=== PATIENT | male | born 1955 | race Two or more races ===

== ENCOUNTER → 2024-04-15 08:17 | Outpatient (REF) | payer OTHER, SELFPAY | LOC: RAD 08:17 | PROVIDERS: ATTENDING PHYSICIAN Internal Medicine Cardiovascular Disease; FAMILY PHYSICIAN Family Medicine | DX: R94.39 Abnormal result of other cardiovascular function study (principal) | CPT/HCPCS: 75574; Q9967 ==

== ENCOUNTER 2024-05-07 05:59 | Day surgery (SDC) | payer OTHER, SELFPAY ==
--- NOTE | 2024-05-06 16:57 | ITS.CL.CATH ---
Counter Hop - Catheterization
Cardiac Catheterization
Procedure Report:
LEFT HEART CATHETERIZATION
Date of Procedure: May 07, 2024
Referring: Heron Nickerson MD
PROCEDURES:
1. Left catheterization, coronary angiogram.
2. Ultrasound-guided access.
3. Physiologic functional testing with IFR of mid LAD.
INDICATION: Patient is a 68-year-old gentleman with past medical history of hypertension, hyperlipidemia, insulin-dependent type 2 diabetes, former smoker, baseline intraventricular conduction delay with significantly elevated coronary calcium score
at 3500, strong family history of premature coronary artery disease with ongoing dyspnea on exertion and fatigue triggered by activity like yard work who is now being referred for a left heart catheterization to rule out obstructive CAD. Denies any
chest discomfort. Transthoracic echocardiogram from 12/04/23 showed normal biventricular function without significant valvular pathology. Pharmacologic nuclear stress test from 11/21/23 revealed no perfusion defects but transient ischemic dilatation
was noted with a ratio 1.3. Coronary CT angiogram from March 2024 showed an LVEF of 73%, significant multivessel coronary artery disease with significant calcified plaque in the distal left main into the LAD, left circumflex and RCA with total
calcium score of 3488.46.
ACCESS: Right radial artery, 6 Sami sheath, under ultrasound-guided
HEMODYNAMICS : (mmHg)
AO (s/d) : 116/60
LV (s/d) : 109/11
LVEDP : 16
CORONARY FINDINGS: Heavily calcified coronary arteries
DOMINANCE: Right
LEFT MAIN: The left main artery is a large-caliber vessel which gives rise to the left anterior descending artery and the left circumflex artery. There is mild distal tapering.
LEFT ANTERIOR DESCENDING: The left anterior descending artery has diffuse up to 50 to 60% stenosis in the midportion which is IFR positive at 0.89. Distal apical LAD has tubular 70% stenosis
CIRCUMFLEX: The left circumflex artery is a medium caliber vessel which gives rise to 2 major obtuse marginal branches. Ostial left circumflex artery is heavily calcified with eccentric 70% stenosis. There are 2 serial lesions in the mid left
circumflex artery that are 80 to 90%. OM 2 has ostial to proximal 70 to 80% stenosis.
RIGHT CORONARY ARTERY: The right coronary artery is a large-caliber, dominant vessel which gives rise to the right posterior descending artery on the right posterolateral system as well as the right atrial branch. There is a 80% stenosis in the
proximal RCA. There appears to be a dual PDA system. The lower PDA has diffuse up to 60% stenosis from the ostium to the proximal portion.
HEMODYNAMIC ASSESSMENT OF THE MID LAD WITH A VOLCANO OMNI WIRE: The origin of the left coronary was cannulated with a 6 Fr JL 3.5 guide catheter. Intravenous heparin was administered and the ACT was followed during the procedure. Two hundred
micrograms of intracoronary nitroglycerin was given through the guide catheter. A [place] Omni wire was advanced to the guide catheter tip and normalized in the ostial left main. The Omni wire was then carefully manipulated across the stenosis in
the mid LAD with the iFR below the ischemic threshold serially measuring 0.89, 0.89, 0.89. The Omni wire was then pulled back to the guide catheter where the Pd/Pa measured 1.0 confirming no baseline drift in pressure readings.
SEDATION: 56 minutes of procedural sedation was utilized. An independent medical affairs specialist was present to assist with and help manage the patient's level of consciousness and physiologic status.
RADIATION SUMMARY: Fluoro Time (min): 13.2, Dose (mGy): 654.77, DAP (Gy.cm2) : 44.9
Closure Device: Vascular band over right radial artery, 10 cc of air
CONCLUSIONS
1. Multivessel coronary artery disease and heavily calcified coronary arteries.
2. Mildly elevated LVEDP
RECOMMENDATIONS
1. In the setting of known type 2 diabetes mellitus and multivessel coronary artery disease, will refer to CT surgery for consideration of coronary artery bypass grafting to LAD, OM1/2, RCA
2. Aggressive management of cardiovascular risk factors.
3. Optimization of goal-directed medical therapy for underlying coronary artery disease.
4. Eventual referral for outpatient cardiac rehab
Copy to: Heron Nickerson MD
Maren Matias MD, FACC, [facility]
[2024-05-07] VITALS (7 sets, daily range): BP systolic 126–173; BP diastolic 65–73; BMI 26.6
[2024-05-07] MEDS: NSS 215 ML IV (06:45)
[2024-05-07] MEDS: LOW STRENGTH ASPIRIN 324 MG PO (06:46)
[2024-05-07 06:49] LABS: Hematocrit 36.5 % (39.0-52.0); Hemoglobin 11.8 g/dL (13.0-18.0); Mean Corp Hgb Conc. 32.3 g/dL (33.0-37.0); Mean Corpuscular Hgb 24.8 pg (27.0-31.0); Mean Corpuscular Volume 76.8 fL (80.0-94.0); Mean Platelet Volume 8.5 fL (7.4-10.4); Platelet Count 229 10^3/uL (130-400); Red Blood Cell Count 4.75 10^6/uL (4.70-6.10); Red Cell Dist. Width 14.6 % (11.5-14.5)
[2024-05-07 07:16] LABS: Glucose - Point of Care 192 mg/dl (70-99)
[2024-05-07 07:19] LABS: ALT (SGPT) 39 U/L (0-50); AST (SGOT) 32 U/L (17-59); Albumin 4.1 g/dl (3.5-5.0); Alkaline Phosphatase 100 U/L (38-126); Blood Urea Nitrogen 21 mg/dl (9-20); Calcium 9.1 mg/dl (8.4-10.2); Carbon Dioxide 28 mmol/L (22-30); Chloride 104 mmol/L (98-107); Estimated Creatinine Clearance 84 ml/min; Glucose 175 mg/dl (70-99); Potassium 3.9 mmol/L (3.5-5.1); Sodium 139 mmol/L (135-145); Total Bilirubin 0.4 mg/dl (0.2-1.3); Total Protein 7.4 g/dl (6.3-8.2); eGFR > 60.00
[2024-05-07 07:49] LABS: ACT-LR - POC 248 Seconds (116-155)
[2024-05-07 08:10] LABS: ACT-LR - POC 239 Seconds (116-155)
[2024-05-07] MEDS: LASIX 20 MG IV (08:56)
== END 2024-05-07 11:19 | disposition home or self-care (01) ==
LOC: CATH 05:59
PROVIDERS: ATTENDING PHYSICIAN Internal Medicine Interventional Cardiology; CONSULT PHYSICIAN Thoracic Surgery (Cardiothoracic Vascular Surgery); FAMILY PHYSICIAN Family Medicine; OTHER PHYSICIAN Internal Medicine Cardiovascular Disease
DX: I25.10 Atherosclerotic heart disease of native coronary artery without angina pectoris (principal); R06.09 Other forms of dyspnea; R94.39 Abnormal result of other cardiovascular function study; I12.9 Hypertensive chronic kidney disease with stage 1 through stage 4 chronic kidney disease, or unspecified chronic kidney disease; E11.22 Type 2 diabetes mellitus with diabetic chronic kidney disease; N18.1 Chronic kidney disease, stage 1; E78.5 Hyperlipidemia, unspecified; Z87.891 Personal history of nicotine dependence; Z82.49 Family history of ischemic heart disease and other diseases of the circulatory system; Z79.4 Long term (current) use of insulin; Z79.82 Long term (current) use of aspirin; Z79.84 Long term (current) use of oral hypoglycemic drugs; Z79.85 Long-term (current) use of injectable non-insulin antidiabetic drugs
CPT/HCPCS: 99152; 99153; C1894; C1769; 80053; 82962; 85027; 85347; 93458; 93571

== ENCOUNTER 2024-05-10 17:20 | Inpatient (IN) | payer OTHER, SELFPAY ==
[2024-05-10] VITALS (14 sets, daily range): BP systolic 100–154; BP diastolic 52–91; BMI 26.0; BMI 25.0
[2024-05-10 11:55] LABS: Glucose - Point of Care 195 mg/dl (70-99)
[2024-05-10] MEDS: NSS 1000 IV (12:14)
[2024-05-10] MEDS: ZOFRAN 4 MG IV (12:20)
--- NOTE | 2024-05-10 12:23 | ED.GENMED ---
History of Present Illness
<Tre Smith PA-C - Last Filed: 05/10/24 16:23>
General
Chief Complaint: Chest Pain
Source: patient
Exam Limitations: none
Time Seen by Provider: 05/10/24 12:04
Travel History
Have you had any contact with someone who has COVID-19?: No
Do you have any symptoms of coronavirus? Fever > 100 degrees, chills, cough, shortness of breath, sore throat, loss of taste or smell, muscle aches, or headache?: No
History of Present Illness
History of Present Illness:
68-year-old male presents with nausea weakness lightheadedness fatigue and vomiting onset today. 3 days ago he underwent cardiac catheterization for significant family history of cardiac disease, multiple medical comorbidities including type 2
diabetes hypertension hyperlipidemia and former smoker. He was found to have multivessel disease and was referred to CT surgery. He states he was told to take carvedilol 3.125 mg twice a day and increase his statin. He notes a slight amount of
chest pain but notes more nausea than anything. Denies syncope. No other complaints at this time
Phy Exam
<Tre Smith PA-C - Last Filed: 05/10/24 16:23>
Physical Exam
Physical Exam:
General: Unwell appearing male no respiratory distress
HEENT: Normocephalic atraumatic mucosa dry
Heart: Bradycardic but regular
Lungs: Clear no wheeze
Abdomen soft nontender nondistended no guarding rebound normal bowel sound
Extremities: No cyanosis or edema
Scores
<Tre Smith PA-C - Last Filed: 05/10/24 16:23>
Heart Score for Chest Pain Patients
STEMI patient?: No
History: Slightly or Non-Suspicious
ECG: Normal
Age: >/= 65 years
Risk Factors: >/= 3 Risk Factors or History of CAD
Troponin: </= Normal Limit
Heart Score for Chest Pain Patients: 4
Heart Score Risk: 20.3% MACE over next 6 weeks
Course
Catlt;Tre Smith PA-C - Last Filed: 05/10/24 16:23>
Orders/Labs/Results
Orders:
Orders
05/10/24 11:58
ECG [Electrocardiogram (*1)] Urgent
Reason for Study: Chest Pain
EKG- Treatment ONCE
05/10/24 12:14
0.9% Sodium Chloride 1000 ml [Nss] 1,000 ml IV BOLUS
05/10/24 12:15
Complete Blood Count/With Diff Urgent
Comprehensive Metabolic Panel Urgent
Creatine Phosphokinase Urgent
Lipase Urgent
Troponin I Urgent
0.9% Sodium Chloride 1000 ml [Nss] 1,000 ml IV 2,000 mls/hr
05/10/24 12:18
Ondansetron Injectable [Zofran] 4 mg .ROUTE .STK-MED ONE
05/10/24 12:19
Ondansetron Injectable [Zofran] 4 mg IV NOW STA
05/10/24 13:09
US Abdomen Complete/Upper Urgent
Comment:
Reason For Exam: elevated LFT
05/10/24 13:22
CT Head W/o Iv Contrast Urgent
Comment:
Reason For Exam: Headache/change in mental status
05/10/24 15:57
Troponin I Urgent
05/10/24 16:01
EKG [Electrocardiogram (*1)] Urgent
Reason for Study: Other
Other Reason for Exam: repeat trop
EKG- Treatment ONCE
Abnormal Lab Results
05/10/24 05/10/24
11:54 12:15
Hgb 11.6 L g/dL
(13.0-18.0)
Hct 36.5 L %
(39.0-52.0)
MCV 76.5 L fL
(80.0-94.0)
MCH 24.3 L pg
(27.0-31.0)
MCHC 31.8 L g/dL
(33.0-37.0)
RDW 14.6 H %
(11.5-14.5)
Absolute Lymphs (auto) 1.1 L 10^3/uL
(1.2-3.4)
Lymphocytes % 18.8 L %
(20.5-51.1)
Monocytes % 10.0 H %
(1.7-9.3)
Glucose 177 H mg/dl
(70-99)
AST 227 H U/L
(17-59)
ALT 382 H U/L
(0-50)
Alkaline Phosphatase 127 H U/L
(38-126)
Creatine Kinase 244 H U/L
(55-170)
POC Glucose 195 H mg/dl
(70-99)
05/10/24 12:15
05/10/24 12:15
Vital Signs
Initial and Last Documented VS:
Initial Vital Signs
Temp Pulse Resp BP Pulse Ox
97.9 F 46 20 104/57 99
05/10/24 11:53 05/10/24 11:53 05/10/24 11:53 05/10/24 11:53 05/10/24 11:53
Last Documented Vital Signs
Temp Pulse Resp BP Pulse Ox
97.9 F 60 17 115/59 100
05/10/24 11:53 05/10/24 16:00 05/10/24 16:00 05/10/24 16:00 05/10/24 16:00
<Juan F Bello MD - Last Filed: 05/10/24 13:25>
Orders/Labs/Results
Orders:
Orders
05/10/24 11:58
ECG [Electrocardiogram (*1)] Urgent
Reason for Study: Chest Pain
EKG- Treatment ONCE
05/10/24 12:14
0.9% Sodium Chloride 1000 ml [Nss] 1,000 ml IV BOLUS
05/10/24 12:15
Complete Blood Count/With Diff Urgent
Comprehensive Metabolic Panel Urgent
Creatine Phosphokinase Urgent
Lipase Urgent
Troponin I Urgent
0.9% Sodium Chloride 1000 ml [Nss] 1,000 ml IV 2,000 mls/hr
05/10/24 12:18
Ondansetron Injectable [Zofran] 4 mg .ROUTE .STK-MED ONE
05/10/24 12:19
Ondansetron Injectable [Zofran] 4 mg IV NOW STA
05/10/24 13:09
US Abdomen Complete/Upper Urgent
Comment:
Reason For Exam: elevated LFT
05/10/24 13:22
CT Head W/o Iv Contrast Urgent
Comment:
Reason For Exam: Headache/change in mental status
05/10/24 15:57
Troponin I Urgent
05/10/24 16:01
EKG [Electrocardiogram (*1)] Urgent
Reason for Study: Other
Other Reason for Exam: repeat trop
EKG- Treatment ONCE
Abnormal Lab Results
05/10/24 05/10/24
11:54 12:15
Hgb 11.6 L g/dL
(13.0-18.0)
Hct 36.5 L %
(39.0-52.0)
MCV 76.5 L fL
(80.0-94.0)
MCH 24.3 L pg
(27.0-31.0)
MCHC 31.8 L g/dL
(33.0-37.0)
RDW 14.6 H %
(11.5-14.5)
Absolute Lymphs (auto) 1.1 L 10^3/uL
(1.2-3.4)
Lymphocytes % 18.8 L %
(20.5-51.1)
Monocytes % 10.0 H %
(1.7-9.3)
Glucose 177 H mg/dl
(70-99)
AST 227 H U/L
(17-59)
ALT 382 H U/L
(0-50)
Alkaline Phosphatase 127 H U/L
(38-126)
Creatine Kinase 244 H U/L
(55-170)
POC Glucose 195 H mg/dl
(70-99)
05/10/24 12:15
05/10/24 12:15
Vital Signs
Initial and Last Documented VS:
Initial Vital Signs
Temp Pulse Resp BP Pulse Ox
97.9 F 46 20 104/57 99
05/10/24 11:53 05/10/24 11:53 05/10/24 11:53 05/10/24 11:53 05/10/24 11:53
Last Documented Vital Signs
Temp Pulse Resp BP Pulse Ox
97.9 F 60 17 115/59 100
05/10/24 11:53 05/10/24 16:00 05/10/24 16:00 05/10/24 16:00 05/10/24 16:00
Catlt;Tre Smith PA-C - Last Filed: 05/10/24 16:23>
MDM/Problems Addressed
Differential Diagnosis Includes:
Generalized weakness nausea vomiting. Found to be bradycardic and hypotensive. Heart rate in the 40s pressure 90s over 50s. Patient was recently told to take carvedilol 3.125 mg twice a day. This may be contributing towards bradycardia and
hypotension. Will administer fluids Zofran. Troponin pending.
<Tre Smith PA-C - Last Filed: 05/10/24 16:23>
*Critical Care Note
Total Time (30-74mins, 75-104mins- exclusive of procedures): Not Applicable
<Tre Smith PA-C - Last Filed: 05/10/24 16:23>
Update Note
Update Note:
Workup here shows negative CT. Patient also has transaminitis on workup. Ultrasound of abdomen shows gallbladder polyp but no secondary signs of cholecystitis. Discussed with emergency room attending who spoke with cardiology who also saw the
patient. Patient is hypotensive and bradycardic with transaminitis with hospital for further evaluation.
ED Attending Note
<Tre Smith PA-C - Last Filed: 05/10/24 16:23>
-
Portions of this chart may have been created with voice recognition software.� Occasional wrong word or��sound alike� substitutions may have occurred due to the inherent limitations of voice recognition software.
<Juan F Bello MD - Last Filed: 05/10/24 13:25>
ED Attending Note
Patient seen and examined by attending physician: Yes
I performed the substantive portion of visit, reviewed & personally made and approve the management plan that is documented in note by myself or FORREST.: Yes
ED Attending Note:
1320... 68-year-old male recent multivessel disease catheterization done. Scheduled to see cardiovascular surgery further evaluation next week. Woke up this morning with some upper abdominal pain. [place] slightly tired. Went to the store with some
increased tiredness as he describes it no diaphoresis no additional chest pain. Then vomited numerous times. Developed some minimal lower chest pain at some point during this episode. Currently has no chest pain no abdominal pain just feels
lightheaded. Does have some headache. Patient started carvedilol after the cardiac cath. Also increased his statin.
Clinically slightly slow to answer but fully awake and alert. Nonfocal. Warm and dry. Speech normal. Mildly hypotensive. Mildly bradycardic and regular no murmur. No respiratory distress. Abdomen with minimal epigastric tenderness.
Initial EKG stable. Initial troponin negative. LFTs some.
Large differential including ongoing cardiac issue although initial testing is unremarkable. I did contact cardiology immediately to ask for their opinion. Gallbladder/cholecystitis would also be in the differential. With a headache and slightly
slow cognitive issues we will also get a head CT.
Discharge Plan
Departure
Patient Disposition: Admit
Date of Disposition: 05/10/24
Time of Disposition: 16:22
Admit to: Telemetry
Presentation/result/management discussed w/ accepting MD/DO: Hospitalist
Discharge Problem:
Transaminitis, Hypotension
Prescriptions:
No Action
multivitamin Tablet
1 tab PO DAILY Qty: 0
amlodipine 10 MG tablet
10 mg PO DAILY
pantoprazole 40 MG tablet,delayed release (DR/EC)
40 mg PO DAILY
metformin 1,000 MG tablet
1,000 mg PO BID
gabapentin 100 MG capsule
300 mg PO BID
magnesium 200 mg Tablet
200 mg PO DAILY Qty: 0
insulin aspart U-100 [Novolog FlexPen U-100 Insulin] 100 unit/mL (3 mL) Insulin Pen
6 unit SC TIDWMEAL Qty: 0
insulin degludec [Tresiba FlexTouch U-100] 100 unit/mL (3 mL) Insulin Pen
50 unit SC HS Qty: 0
Ozempic 0.25 mg or 0.5 mg(2 mg/1.5 mL) Pen Injector
0.5 mg SC QWEEK
sildenafil 50 mg Tablet
50 mg PO DAILY PRN (Reason: ed)
aspirin 81 mg Tablet,Delayed Release (Dr/Ec)
81 mg PO DAILY
valsartan-hydrochlorothiazide 160-25 mg Tablet
1 tab PO DAILY
ginkgo biloba 120 mg Tablet
120 mg PO DAILY
atorvastatin 80 mg tablet
80 mg PO HS Qty: 90 3RF
carvedilol [Coreg] 3.125 mg tablet
3.125 mg PO BID Qty: 180 3RF
nitroglycerin 0.4 mg tablet, sublingual
0.4 mg sublingual [id number] PRN (Reason: chest pain) Qty: 25 2RF
Referrals:
Amita Gaines MD [Family Provider] -
Interventions
Interventions:
*Risk Screen - Suicide Last Done: 05/10/24 12:25
*General Assessment Last Done: 05/10/24 16:09
*Neglect/Abuse Screening Last Done: 05/10/24 12:25
*ED COVID-19 Vaccine History Last Done: 05/10/24 16:09
ED- Cardiac Assessment Last Done: 05/10/24 12:25
Discharge Date and Time
Print Language: YI
[2024-05-10 12:32] LABS: % Basophils 0.5 % (0-2); % Eosinophils 5.2 % (0-6); % Immature Granulocytes 0.4 % (0-0.5); % Lymphocytes 18.8 % (20.5-51.1); % Neutrophils 65.1 % (42.2-75.2); Absolute Eosinophils 0.3 10^3/uL (0-0.7); Absolute Lymphocytes 1.1 10^3/uL (1.2-3.4); Absolute Monocytes 0.6 10^3/uL (0.1-0.6); Absolute Neutrophils 3.6 10^3/uL (1.4-6.5); Hematocrit 36.5 % (39.0-52.0); Hemoglobin 11.6 g/dL (13.0-18.0); Mean Corp Hgb Conc. 31.8 g/dL (33.0-37.0); Mean Corpuscular Hgb 24.3 pg (27.0-31.0); Mean Corpuscular Volume 76.5 fL (80.0-94.0); Mean Platelet Volume 9.1 fL (7.4-10.4); Nucleated Red Blood Cells % 0 % (-); Platelet Count 243 10^3/uL (130-400); Red Blood Cell Count 4.77 10^6/uL (4.70-6.10); Red Cell Dist. Width 14.6 % (11.5-14.5); White Blood Cell Count 5.6 10^3/uL (4.8-10.8)
[2024-05-10 12:45] LABS: ALT (SGPT) 382 U/L (0-50); AST (SGOT) 227 U/L (17-59); Alkaline Phosphatase 127 U/L (38-126); Blood Urea Nitrogen 20 mg/dl (9-20); Calcium 9.3 mg/dl (8.4-10.2); Carbon Dioxide 26 mmol/L (22-30); Chloride 103 mmol/L (98-107); Creatine Phosphokinase 244 U/L (55-170); Estimated Creatinine Clearance 56 ml/min; Glucose 177 mg/dl (70-99); Lipase 279 U/L (23-300); Potassium 4.3 mmol/L (3.5-5.1); Sodium 137 mmol/L (135-145); Total Bilirubin 0.7 mg/dl (0.2-1.3); Total Protein 7.2 g/dl (6.3-8.2); eGFR > 60.00
[2024-05-10 12:57] LABS: Troponin I 0.013 ng/ml
--- NOTE | 2024-05-10 13:33 | CON.CAR ---
Addendum entered and electronically signed by Primo Ford MD 05/10/24 16:16:
68-year-old man with a recent cardiac catheterization showing three-vessel coronary artery disease scheduled for outpatient CT surgical consultation. He was seen by cardiology May 06 and carvedilol 3.125 mg twice daily was added along with
increase in atorvastatin to 80 mg. Now with nausea, vomiting weakness and lightheadedness along with mild chest discomfort. Initial blood pressure 104 systolic with heart rate in the 40s and 50s. Troponin detectable at 0.013, AST 227, ALT 382.
Now asked to review.
PMH: CAD as above, hypertension, hyperlipidemia, type 2 diabetes
PSH: Right rotator cuff repair, lumbar laminectomy/fusion, cataracts
Tobacco: Remote
Alcohol none
, lives with family, retired
Family history positive for CAD
Allergies none
Outpatient medications: Amlodipine, gabapentin, insulin, magnesium, metformin, MVI, pantoprazole, aspirin, atorvastatin 80 mg daily, carvedilol 3.125 twice daily, ginkgo, semaglutide, sildenafil and valsartan HCT
Review of systems negative except as above
116/63, pulse 54, respirate 17, afebrile, slightly lethargic but communicative, complains of being weak but no chest discomfort dyspnea, vague abdominal distress but markedly improved, head neck exam unremarkable, lungs are clear cardiac exam is
notable for a regular rate and rhythm without murmurs JVD okay, abdomen soft not particularly tender no hepatosplenomegaly or organomegaly, bowel sounds present, extremities without edema pulses palpable, neuro nonfocal
ECG: Marked sinus bradycardia
Head CT no acute abnormalities
Abdominal ultrasound: Reading pending
Hemoglobin 11.6, platelets 243, glucose 177, AST 227, ALT 382, alk phos 127, CPK is 244, lipase 279
Echo November 2023: EF 60-65%, normal RV, normal atria, mild MR, normal aortic valve, could not determine pulmonary artery pressure
Cardiac catheterization 05/06/2024: Minimal luminal irregularities of left main, 50-60% mid LAD stenosis, IFR 0.89, apical LAD 70%, 70% ostial circumflex, sequential 80 and 90 mid circumflex stenoses, ostial 70% OM 2, dominant RCA 80% proximal, 60%
of dual PDA, LVEDP 16
Impression:
Presents 05/10/2024 with nausea, vomiting, dizziness and chest pain
Elevated LFTs
Multivessel coronary artery disease
Hypertension
Hyperlipidemia
Type 2 diabetes, on insulin
Former smoker
Strong family history of premature coronary artery disease
Plan:
He presents with GI symptoms, generalized weakness, abnormal transaminases and cardiac status that seems stable.
Etiology of his presentation is uncertain, but the major change was cardiac catheterization on May 06 with addition of carvedilol and up titration of atorvastatin. It is possible that these medications are responsible, particularly atorvastatin
for his elevated LFTs. Carvedilol could be contributing to weakness, bradycardia and hypotension.
.
His EKG is fairly unremarkable and stable, troponin is minimally detectable at 0.013.
Would observe overnight, defer to hospitalist whether GI evaluation is warranted, hold carvedilol and atorvastatin and reassess in the a.m. I will notify CT surgery that the patient was admitted.
We will reassess in AM.
Original Note:
Consultation
Consultation Request
Date/Time Consultation Requested: 05/10/2024
Date/Time Consultation Performed: 05/10/2024
Requesting Provider: Tre Smith PA-C
Performing Provider: Sury Gross PA-C for Dr. Primo Ford
Reason for Consultation: Nausea associated with mild chest pain
Medical History
-
History of Present Illness:
Patient is a 68-year-old male with past medical history multivessel coronary artery disease, hypertension, hyperlipidemia, type 2 diabetes on insulin, former tobacco abuse and strong family history of premature heart disease. He was seen in the
outpatient cardiology office in November 2023 with complaints of ongoing dyspnea on exertion with normal perfusion but TID of 1.3 on Lexiscan stress test. He was found to have significantly elevated calcium score on CTA of coronaries in March 2024
which prompted him to have a cardiac catheterization 05/06/2024 which demonstrated multivessel coronary artery disease. He was referred to CT surgery as an outpatient for evaluation which is scheduled on 05/14/2024. Patient was started on Coreg 3.125
mg and atorvastatin was increased to 80 mg on 05/06/24.
Patient now presenting to emergency department 05/10/2024 with complaints of nausea, vomiting, weakness and lightheadedness. Patient also notes mild chest discomfort. He was noted to be hypotensive on arrival with blood pressure of 104/57 and heart
rates in the upper 40s to low 50s bpm. EKG demonstrated sinus bradycardia at 49 bpm without ischemic changes. Troponin 0.013. LFTs noted to be significantly elevated with AST 227, ALT 382. He was given ondansetron and IV fluids.
PMH:
Multivessel coronary artery disease
Hypertension
Hyperlipidemia
Type 2 diabetes, on insulin
Former smoker
Strong family history of premature coronary artery disease
Past Medical History
Past Medical History: Other (See HPI )
Past Surgical History: Orthopedic (Right shoulder/rotator cuff repair July 2019, lumbar laminectomy and fusion January 2019) and Other (Status post cataract extraction in 2013)
Social History
Tobacco: Former Smoker (Quit greater than 10 years ago)
Alcohol: None
Drug: None
Personal:
Living: With Family
Family History
Family History: Other (Father had diabetes, CAD, pacemaker, hypertension, diabetes. Father had coronary artery disease hypertension hyperlipidemia)
Allergies / Home Medications
Allergy/AdvReac Type Severity Reaction Status Date / Time
No Known Allergies Allergy Verified 05/10/24 11:54
�Medication �Instructions �Recorded �Confirmed �Type
amlodipine 10 mg tablet 10 mg PO DAILY Blood Pressure 02/25/19 05/07/24 History
gabapentin 100 mg capsule 300 mg PO BID Pain 02/25/19 05/07/24 History
insulin aspart U-100 100 unit/mL 6 unit SC TIDWMEAL diabetic ##0 02/25/19 05/07/24 History
(3 mL) subcutaneous pen (Novolog
FlexPen U-100 Insulin aspart)
insulin degludec 100 unit/mL (3 50 unit SC HS diabetic ##0 02/25/19 05/07/24 History
mL) subcutaneous pen (Tresiba
FlexTouch U-100 insulin)
magnesium 200 mg tablet 200 mg PO DAILY Supplement ##0 02/25/19 05/07/24 History
metformin 1,000 mg tablet 1,000 mg PO BID dm 02/25/19 05/07/24 History
multivitamin 1 tab PO DAILY Supplement ##0 02/25/19 05/07/24 History
pantoprazole 40 mg tablet,delayed 40 mg PO DAILY stomach 02/25/19 05/07/24 History
release
aspirin 81 mg tablet,delayed 81 mg PO DAILY blood thinner 05/07/24 05/07/24 History
release
atorvastatin 80 mg tablet 80 mg PO HS #90 tabs 05/07/24 Rx
carvedilol 3.125 mg tablet (Coreg) 3.125 mg PO BID #180 tabs 05/07/24 Rx
ginkgo biloba 120 mg tablet 120 mg PO DAILY Supplement 05/07/24 05/07/24 History
nitroglycerin 0.4 mg sublingual 0.4 mg sublingual [id number] PRN 05/07/24 Rx
tablet chest pain #25 tabs
semaglutide 0.25 mg or 0.5 mg (2 0.5 mg SC QWEEK dm 05/07/24 05/07/24 History
mg/1.5 mL) subcutaneous pen
injector (Ozempic)
sildenafil 50 mg tablet 50 mg PO DAILY PRN ed 05/07/24 05/07/24 History
valsartan 160 1 tab PO DAILY bp 05/07/24 05/07/24 History
mg-hydrochlorothiazide 25 mg tablet
Review of Systems
-
History Source: Patient
All other systems: Negative unless noted
Physical Exam
Vital Signs
Temp Pulse Resp BP Pulse Ox
97.9 F 56 15 100/52 97
05/10/24 11:53 05/10/24 13:30 05/10/24 13:30 05/10/24 13:11 05/10/24 13:30
Lab Results
05/10/24 12:15
05/10/24 12:15
Troponin I 0.013 ng/ml 05/10/24 12:15
Impression / Plan
-
PCP: Melina Khalil
Restuarant Crew Worker: Heron Nickerson MD
Impression:
Presents 05/10/2024 with nausea, vomiting, dizziness and chest pain
Elevated LFTs
Multivessel coronary artery disease
Hypertension
Hyperlipidemia
Type 2 diabetes, on insulin
Former smoker
Strong family history of premature coronary artery disease
Cardiac catheterization 05/07/2024: LM: Distal tapering. LAD: Mid 50 to 60% stenosis with IFR positive at 0.89, 70% distal/apical LAD stenosis. LCX: 70% ostial stenosis, 2 serial mid lesions with 80 to 90% stenosis. RCA proximal 80%. Dual PDA with
lower PDA 60% ostial to proximal stenosis
CTA 04/15/2024: Calcium score 3488.46 (LM 17.48, LAD 480.21, LCX 728.77, RCA 2,262)
Echo 12/04/2023: EF 60 to 65%, normal wall motion abnormality with no significant valvular disease
Lexiscan nuclear stress test 11/17/2023: Normal perfusion however TDI ratio of 1.3, EF 67%
Plan:
Patient is a 68-year-old male with past medical history multivessel coronary artery disease, hypertension, hyperlipidemia, type 2 diabetes on insulin, former tobacco abuse and strong family history of premature heart disease. He was seen in the
outpatient cardiology office in November 2023 with complaints of ongoing dyspnea on exertion with normal perfusion but TID of 1.3 on Lexiscan stress test. He was found to have significantly elevated calcium score on CTA of coronaries in March 2024
which prompted him to have a cardiac catheterization 05/06/2024 which demonstrated multivessel coronary artery disease. He was referred to CT surgery as an outpatient for evaluation which is scheduled on 05/14/2024. Patient was started on Coreg 3.125
mg and atorvastatin was increased to 80 mg on 05/06/24.
Patient now presenting to emergency department 05/10/2024 with complaints of nausea, vomiting, weakness and lightheadedness. Patient also notes mild chest discomfort. He was noted to be hypotensive on arrival with blood pressure of 104/57 and heart
rates in the upper 40s to low 50s bpm. EKG demonstrated sinus bradycardia at 49 bpm without ischemic changes. Troponin 0.013. LFTs noted to be significantly elevated with AST 227, ALT 382. He was given ondansetron and IV fluids.
-Presents 05/10/2024 with acute onset of nausea, vomiting, dizziness, weakness and mild chest discomfort.
-Agree with IV fluid bolus given hypotension. Blood pressure stable although remains on the low side would hold carvedilol, Valsartan-HCT and Amlodipine
-Noted to have elevated LFTs with AST/ALT 227/328. Lipase was 279. Abdominal ultrasound pending to rule out GI cause
-Increased dose of atorvastatin to 80 mg on 05/06/24. Would hold in setting of abnormal LFTs.
-Recently discovered multivessel coronary artery disease on cardiac catheterization. EKG shows sinus rhythm. Initial troponin 0.013 which is unremarkable. Repeat troponin.
-Suspect ongoing symptoms are noncardiac and more GI in nature.
-HCT ordered for dizziness and results pending.
Data Reviewed
-
EKG: Report Reviewed by me, Discussed with Physician and Discussed with Nurse
Labs: Labs Reviewed by me, Discussed with Physician and Discussed with Nurse
Old Records: Reviewed
[2024-05-10 16:30] LABS: Troponin I < 0.012 ng/ml
--- NOTE | 2024-05-10 17:15 | HPS.HSE ---
Family Physician
-
Family Physician: Amita Gaines
Chief Complaint
-
Nausea and Vomiting
History of Present Illness
This is a 68 year old male with past medical history of hypertension, diabetes and newly diagnosed multivessel coronary artery disease who presents to the emergency department with chest pain, nausea, vomiting, and dizziness. The patient states that
he felt abdominal discomfort and fatigue last night. Patient reports abdominal discomfort this morning at the store which progressed to nausea, vomiting, and dizziness, prompting him to present to the emergency department. Upon arrival to the
emergency department, he was found to have a heart rate of 49 and a blood pressure of 104/57. Since being in the emergency department, he reports the chest pain and nausea have resolved, and he is feeling improved. Patient was recently started on
Coreg 3.125 mg BID and atorvastatin was increased to 80 mg on 05/06/24. He denies dyspnea, fevers, sweats, and chills.
Medical History
Past Medical History
Past Medical History: Reports Other
Additional Past Medical History:
Coronary Artery Disease
Essential Hypertension
Hyperlipidemia
Diabetes Mellitus, Type II
Diabetic Neuropathy
Past Surgical History: Reports None
Social History
Tobacco: Former Smoker (Quit in 1977)
Family History
Family History: Not pertinent
Allergies / Home Medications
Allergies reflects when Allergies were last updated in [facility].
Home Medications with original date entered in [facility]
Allergy/Medication List:
Allergies
Allergy/AdvReac Type Severity Reaction Status Date / Time
No Known Allergies Allergy Verified 05/10/24 11:54
Home Medications
amlodipine 10 mg tablet 10 mg PO DAILY Blood Pressure 02/25/19
insulin aspart U-100 100 unit/mL (3 mL) subcutaneous pen (Novolog FlexPen U-100 Insulin aspart) 6 unit SC MEALS diabetic ##0 02/25/19
insulin degludec 100 unit/mL (3 mL) subcutaneous pen (Tresiba FlexTouch U-100 insulin) 50 unit SC HS diabetic ##0 02/25/19
magnesium 200 mg tablet 200 mg PO DAILY Supplement ##0 02/25/19
metformin 1,000 mg tablet 1,000 mg PO BID dm 02/25/19
multivitamin 1 tab PO DAILY Supplement ##0 02/25/19
pantoprazole 40 mg tablet,delayed release 40 mg PO DAILY stomach 02/25/19
aspirin 81 mg tablet,delayed release 81 mg PO QPM blood thinner 05/07/24
atorvastatin 80 mg tablet 80 mg PO HS #90 tabs 05/07/24
carvedilol 3.125 mg tablet (Coreg) 3.125 mg PO BID #180 tabs 05/07/24
ginkgo biloba 120 mg tablet 120 mg PO DAILY Supplement 05/07/24
nitroglycerin 0.4 mg sublingual tablet 0.4 mg sublingual [id number] PRN chest pain #25 tabs 05/07/24
semaglutide 0.25 mg or 0.5 mg (2 mg/1.5 mL) subcutaneous pen injector (Ozempic) 0.5 mg SC PHILIP dm 05/07/24
sildenafil 50 mg tablet 50 mg PO DAILY PRN ed 05/07/24
valsartan 160 mg-hydrochlorothiazide 25 mg tablet 1 tab PO DAILY bp 05/07/24
gabapentin 300 mg capsule 300 mg PO BID 05/10/24
Review of Systems
-
A 12 point ROS was completed and negative except as noted: Yes
Constitutional: Denies Fever or Chills
Respiratory: Denies Cough or Trouble Breathing
Physical Exam
Vital Signs
Vital Signs
Temp Pulse Resp BP Pulse Ox
97.9 F 60 18 128/68 98
05/10/24 11:53 05/10/24 16:45 05/10/24 16:45 05/10/24 16:30 05/10/24 16:45
Physical Exam
General: Comfortable and Conversant
HEENT: Anicteric and Moist mucous membranes
Respiratory: Clear and Non Labored Respirations
GI: Soft, Non Tender, Non Distended and Normal Bowel Sounds
Rectal: Deferred by Provider
Musculoskeletal: No Clubbing, No Cyanosis and No Edema
Skin: Warm and Dry
Neuro: Awake, Alert, Oriented and Nonfocal/grossly intact
Psych: Calm
Laboratory Results
-
05/10/24 12:15
05/10/24 12:15
Laboratory Results
Total Bilirubin 0.7 mg/dl (0.2-1.3) 05/10/24 12:15
AST 227 U/L (17-59) H 05/10/24 12:15
ALT 382 U/L (0-50) H 05/10/24 12:15
Alkaline Phosphatase 127 U/L (38-126) H 05/10/24 12:15
Troponin I < 0.012 ng/ml 05/10/24 15:57
Lipase 279 U/L (23-300) 05/10/24 12:15
Data Reviewed
-
CT Scan: Report Reviewed by me (Head CT)
Ultrasound: Report Reviewed by me (Abd US)
Medical Tests (Nuc Med, Echo, EKG etc): Report Reviewed by me (ECG)
Lab Data: Labs Reviewed by me
Impression/Plan
-
Bradycardia secondary to newly added beta-diana
-Hold Coreg
-Monitor on Telemetry
Transaminitis, possibility related to increased statin and relative hypotension
-Hold atorvastatin
-Allow clear liquids and advance diet as tolerated
Multivessel Coronary Artery Disease
-Patient has been referred to CT surgery with up coming appointment next week
-Continue aspirin
Essential Hypertension
-Coreg on hold due to bradycardia
-Hold HCTZ
-Continue amlodipine, and valsartan with parameters
Hyperlipidemia
-Statin on hold due to elevated LFTs
Diabetes Mellitus, Type II
-Continue home insulin regimen
-Continue metformin
-Patient also uses Ozempic as outpatient with last dose on April 28
-Monitor sugars and continue coverage insulin
Diabetic Neuropathy
-Continue gabapentin
GERD
-Continue Protonix
DVT proph: Lovenox
Code Status: Full Code
--- NOTE | 2024-05-10 17:16 | W.PN.UPDATE ---
Update Note
Progress Note Update
I saw and examined the patient.
The ARMAMENT INSTALLER's note was reviewed and I agree with the note.
Patient is a 68-year-old male with past medical history of multivessel CAD s/p LHC earlier in the week, hyperlipidemia, essential hypertension, IDDM, depression, GERD, mitral regurgitation, erectile dysfunction, BPH came to ER with new onset of
nausea and vomiting episode. Patient was also noted to be hypotensive and bradycardic in ER. No reported dizziness/syncope. Patient denies of having any shortness of breath/chest pain. Of note patient have undergone left heart catheterization
earlier in the week and have multivessel coronary artery disease, patient is planned to have follow-up with cardiothoracic surgeon next week
HEENT: No pallor, cyanosis, or jaundice. Throat clear.
NECK: Supple. No JVD.
RESPIRATORY: Lungs clear to auscultation.
CVS: S1, S2 normal. RRR. No murmur, rub or gallop.
ABDOMEN: Soft, RUQ tender, No distension. BS+/normal.
EXTREMITIES: No peripheral cyanosis or edema.
CARTOGRAPHIC DRAFTER: AOx3. No focal deficits.
Acute transaminitis
Elevated CPK
-Patient elevated LFT, acute rise from labs earlier in the week.
-Liver versus gallbladder sound did not show any major acute abnormalities except gallbladder polyp
-Suspecting likely increased Lipitor/statin dose related transaminitis
-Patient have mild CPK elevation which goes along with statin intolerance as well
-Discontinue atorvastatin for now and follow-up LFT
-Further testing to be done if LFT continues to remain elevated or uptrending.
Multivessel CAD
Hypotension
Sinus bradycardia
-Pending CT surgery evaluation in office next week. Cardiology evaluated in ER
-Hypotension and sinus bradycardia likely from increased Coreg dose
-Hold Coreg and monitor vitals overnight.
Full code
[2024-05-10 18:45] LABS: Glucose - Point of Care 157 mg/dl (70-99)
--- NOTE | 2024-05-10 19:37 | PTCARENOTE ---
Patient arrived from ED via stretcher to 338-1 during change of nursing shift. Patient alert and oriented, initiated on groundwater monitoring technician #4 - NSR. Family at bedside. Oriented to room and unit, call madera within reach - patient will ring for
assistance if needed. Will monitor.
[2024-05-10] MEDS: LOVENOX 40 MG SC (20:28)
[2024-05-10] MEDS: NEURONTIN 300 MG PO (20:28)
[2024-05-10] MEDS: GLUCOPHAGE 1000 MG PO (20:28)
[2024-05-10] MEDS: ASPIR LOW (ENTERIC COATED) 81 MG PO (20:28)
[2024-05-10] MEDS: NOVOLOG FLEXPEN 6 UNITS SC (20:29)
[2024-05-10] MEDS: TYLENOL 650 MG PO (20:35)
[2024-05-10 21:22] LABS: Glucose - Point of Care 203 mg/dl (70-99)
[2024-05-10] MEDS: LANTUS 0.5 UNITS SC (22:26)
[2024-05-11 03:00] VITALS: BP 117/60
[2024-05-11 07:00] VITALS: BP 114/67
[2024-05-11 08:02] LABS: Glucose - Point of Care 89 mg/dl (70-99)
[2024-05-11] MEDS: NOVOLOG FLEXPEN-MODERATE RESISTANCE SC (08:19)
[2024-05-11] MEDS: MAG-TAB SR 84 MG PO (08:19)
[2024-05-11] MEDS: GLUCOPHAGE 1000 MG PO (08:19)
[2024-05-11] MEDS: NEURONTIN 300 MG PO (08:19)
[2024-05-11] MEDS: PROTONIX 40 MG PO (08:19)
[2024-05-11] MEDS: DIOVAN 160 MG PO (08:23)
[2024-05-11] MEDS: NOVOLOG FLEXPEN SC (08:24)
[2024-05-11 08:25] LABS: Hematocrit 35.5 % (39.0-52.0); Hemoglobin 11.2 g/dL (13.0-18.0); Mean Corp Hgb Conc. 31.5 g/dL (33.0-37.0); Mean Corpuscular Hgb 24.4 pg (27.0-31.0); Mean Corpuscular Volume 77.3 fL (80.0-94.0); Mean Platelet Volume 9.9 fL (7.4-10.4); Platelet Count 230 10^3/uL (130-400); Red Blood Cell Count 4.59 10^6/uL (4.70-6.10); Red Cell Dist. Width 14.9 % (11.5-14.5); White Blood Cell Count 5.1 10^3/uL (4.8-10.8)
[2024-05-11 08:54] LABS: ALT (SGPT) 304 U/L (0-50); AST (SGOT) 122 U/L (17-59); Albumin 3.6 g/dl (3.5-5.0); Alkaline Phosphatase 98 U/L (38-126); Blood Urea Nitrogen 19 mg/dl (9-20); Calcium 9.1 mg/dl (8.4-10.2); Carbon Dioxide 28 mmol/L (22-30); Chloride 103 mmol/L (98-107); Estimated Creatinine Clearance 78 ml/min; Glucose 73 mg/dl (70-99); Potassium 3.9 mmol/L (3.5-5.1); Sodium 140 mmol/L (135-145); Total Bilirubin 0.4 mg/dl (0.2-1.3); Total Protein 6.7 g/dl (6.3-8.2); eGFR > 60.00
[2024-05-11 09:18] LABS: Glycohemoglobin (HgbA1c) 7.9 % (4.0-5.6)
--- NOTE | 2024-05-11 10:16 | W.PN.CARDCBS ---
Addendum entered and electronically signed by Juan F Joshua MD 05/11/24 10:59:
I met with patient and his at bedside
Patient tells me he feels 'much better', more energetic with holding statin and BB as well as receiving IVFs.
No CP or SOB
VS and lab findings improving
Well appearing, no distress
RRR, Nl S1 and S@, no S3 or S$,12/02 AHSM, no rubs
Lungs CTA b/l
Clinically improving
Hemodynamically stable for DC
All od their questions answered
Patient is scheduled to see CT surgeon in the office 05/14/24 at 8:30 AM
Original Note:
Today's Communication / Plan
-
Restart lower dose of amlodipine at 5 mg daily
Outpatient dose of valsartan/HCTZ changed to plain valsartan 160 mg daily
STOP Coreg and atorvastatin
CT surgery follow up appt on chart
Impression / Plan
-
PCP: Melnia Khalil
Jewelry Estimator: Heron Nickerson MD
Impression:
Presents 05/10/2024 with nausea, vomiting, dizziness and chest pain
Elevated LFTs
Hypotension and bradycardia on admission
Multivessel coronary artery disease
Hypertension
Hyperlipidemia
Type 2 diabetes, on insulin
Former smoker
Strong family history of premature coronary artery disease
Cardiac catheterization 05/07/2024: LM: Distal tapering. LAD: Mid 50 to 60% stenosis with IFR positive at 0.89, 70% distal/apical LAD stenosis. LCX: 70% ostial stenosis, 2 serial mid lesions with 80 to 90% stenosis. RCA proximal 80%. Dual PDA with
lower PDA 60% ostial to proximal stenosis
CTA 04/15/2024: Calcium score 3488.46 (LM 17.48, LAD 480.21, LCX 728.77, RCA 2,262)
Echo 12/04/2023: EF 60 to 65%, normal wall motion abnormality with no significant valvular disease
Lexiscan nuclear stress test 11/17/2023: Normal perfusion however TDI ratio of 1.3, EF 67%
Plan:
-Patient improved after 1 L IVFs 05/10/24. No recurrence of abdominal pain or vomiting after advancing diet.
-Hypotension, bradycardia and elevated LFTs on admission could be from medication changes after cath earlier this week on 05/07/24. At that time patient was found to have multivessel CAD and was recommend outpatient CABG evaluation with medical
therapy in the meantime including increasing atorvastatin to 80 mg daily and adding Coreg 3.125 mg BID.
-Abdominal u/s was unremarkable and LFTs trending down.
-Recommend stopping atorvastatin and Coreg. Will re-evaluate for restarting statin vs PCSK9 in the future given CAD.
-Outpatient dose of valsartan/HCTZ 160/25 mg daily was changed to plain valsartan 160 mg daily. Remains normotensive 05/11/24 so can continue to hold HCTZ.
-Outpatient dose of amlodipine 10 mg daily was held 05/11/24 due to SBP less than 120. Would resume amlodipine 5 mg daily 05/11/24, order placed.
-Troponin serially undetectable.
-Patient is scheduled to see CT surgeon in the office 05/14/24 at 8:30 AM, appt on chart.
HPI: Patient is a 68-year-old male with past medical history multivessel coronary artery disease, hypertension, hyperlipidemia, type 2 diabetes on insulin, former tobacco abuse and strong family history of premature heart disease. He was seen in the
outpatient cardiology office in November 2023 with complaints of ongoing dyspnea on exertion with normal perfusion but TID of 1.3 on Lexiscan stress test. He was found to have significantly elevated calcium score on CTA of coronaries in March 2024
which prompted him to have a cardiac catheterization 05/06/2024 which demonstrated multivessel coronary artery disease. He was referred to CT surgery as an outpatient for evaluation which is scheduled on 05/14/2024. Patient was started on Coreg 3.125
mg and atorvastatin was increased to 80 mg on 05/06/24.
Patient now presenting to emergency department 05/10/2024 with complaints of nausea, vomiting, weakness and lightheadedness. Patient also notes mild chest discomfort. He was noted to be hypotensive on arrival with blood pressure of 104/57 and heart
rates in the upper 40s to low 50s bpm. EKG demonstrated sinus bradycardia at 49 bpm without ischemic changes. Troponin 0.013. LFTs noted to be significantly elevated with AST 227, ALT 382. He was given ondansetron and IV fluids.
Progress Note - Jewelry Estimator
Subjective
Date of Service: May 11, 2024
Feeling much better today
Objective
Labs:
05/11/24 05:33
05/11/24 05:33
Labs
Hgb 11.2 g/dL (13.0-18.0) L 05/11/24 05:33
Hct 35.5 % (39.0-52.0) L 05/11/24 05:33
Plt Count 230 10^3/uL (130-400) 05/11/24 05:33
Sodium 140 mmol/L (135-145) 05/11/24 05:33
Potassium 3.9 mmol/L (3.5-5.1) 05/11/24 05:33
BUN 19 mg/dl (9-20) 05/11/24 05:33
Creatinine 0.8 mg/dL (0.7-1.3) 05/11/24 05:33
Glucose 73 mg/dl (70-99) 05/11/24 05:33
Troponins
05/10/24 05/10/24
12:15 15:57
Troponin I 0.013 < 0.012
Vital Signs and I&O:
Vital Signs
Temp Pulse Resp BP Pulse Ox
97.8 F 55 18 114/67 95
05/11/24 07:00 05/11/24 08:23 05/11/24 07:00 05/11/24 08:23 05/11/24 07:00
Vital Signs
Temp Pulse Resp BP Pulse Ox
97.8 F 55 18 114/67 95
05/11/24 07:00 05/11/24 08:23 05/11/24 07:00 05/11/24 08:23 05/11/24 07:00
Intake & Output
05/09/24 05/10/24 05/11/24 05/12/24
06:59 06:59 06:59 06:59
Intake Total 480 / 480
Balance 480 / 480
Physical Exam
Physical Exam
GEN: AAOx3
HEENT: mmm
LUNGS: No audible wheeze
CV: SR on tele
ABD: ND
EXT: No edema
NEURO: Gross non-focal
SKIN: No rash
[2024-05-11 11:00] VITALS: BP 129/62
[2024-05-11 11:50] LABS: Glucose - Point of Care 202 mg/dl (70-99)
[2024-05-11] MEDS: NOVOLOG FLEXPEN 6 UNITS SC (11:52)
[2024-05-11] MEDS: NOVOLOG FLEXPEN-MODERATE RESISTANCE 3 UNITS SC (11:52)
--- NOTE | 2024-05-11 11:52 | CM ---
Met with pt and family members at bedside
Pt lives in a ranch style home with family
Independent, shops, etc
DME - none
SNF/HH - Denies past hx
Has ride at d/c
PCP - Dr Mathew Dejesus
Pharm - [facility]
Plan - anticipate home no needs
--- NOTE | 2024-05-11 14:00 | W.PN.HOSP.TC ---
Today's Communication/Plan
-
d/c home
Assessment / Plan
Assessment / Plan
Acute transaminitis
Elevated CPK
-Patient elevated LFT, acute rise from labs earlier in the week.
-Liver versus gallbladder sound did not show any major acute abnormalities except gallbladder polyp
-Suspecting likely increased Lipitor/statin dose related transaminitis
-Patient have mild CPK elevation which goes along with statin intolerance as well
-Discontinue atorvastatin for now and follow-up LFT
-LFT trending down. Discussed with cardiology recommended to continue holding atorvastatin/Coreg at discharge and follow-up in office.
Multivessel CAD
Hypotension - Improved
Sinus bradycardia - Improved
-Pending CT surgery evaluation in office next week. Cardiology evaluated in ER
-Hypotension and sinus bradycardia likely from increased Coreg dose
-Coreg to be discontinued at discharge.
Essential HTN
Type II DM
Diabetic neuropathy
GERD
Full code
More than 30 minutes spent in discharge including
Final examination of the patient
Summarizing hospital stay
Instructions for continuing care to all relevant caregivers
Preparation of discharge records, prescriptions, and referral forms
Total time spent (in minutes): 38 mins
Anticipated Discharge: Today
Subjective/Interval History
-
Date of Service: May 11, 2024
feeling better
Objective Data
-
Labs:
Laboratory Results
05/11/24
05:33
WBC 5.1
Hgb 11.2 L
Hct 35.5 L
Plt Count 230
Sodium 140
Potassium 3.9
Chloride 103
Carbon Dioxide 28
BUN 19
Creatinine 0.8
Glucose 73
Calcium 9.1
Total Bilirubin 0.4
AST 122 H
ALT 304 H
Alkaline Phosphatase 98
Vital Signs:
Vital Signs
Temp Pulse Resp BP Pulse Ox
97.8 F 56 18 129/62 95
05/11/24 11:00 05/11/24 11:00 05/11/24 11:00 05/11/24 11:00 05/11/24 11:00
I&O
05/10/24 05/11/24 05/12/24
06:59 06:59 06:59
Intake Total 480 / 480
Balance 480 / 480
Review of Systems
-
Respiratory: Reports No Symptoms
Cardiac: Reports No Symptoms
Abdomen/GI: Reports No Symptoms
Physical Exam
-
General: No Apparent Distress and Comfortable
HEENT: Negative Oxygen
Respiratory: Clear to Auscultation
Cardiac: Regular Rhythm and S1/S2; Negative Murmur or Rub
GI: Soft, Nontender, Nondistended and Normal Bowel Sounds
Musculoskeletal: No Edema
Neuro: Awake, Alert, Oriented, No Motor Deficits and Nonfocal/Grossly Intact
Psych: Calm
--- NOTE | 2024-05-12 13:56 | W.DCSUMMARY ---
Discharge Summary
Discharge Data
Date of Admission: 05/10/24
Date of Discharge: 05/11/24
-
Pending Results: No
Hospital Course
Discharging Physician : Dr Kamron Chacon
Disposition : Home
Primary care physician : Dr Amita Gaines
Principal Discharge diagnosis :
Acute transaminitis from statin medication
acute rhabdomyolysis
Hypotension/bradycardia
Chronic Discharge diagnosis :
Multivessel coronary disease
Essential hypertension
Hyperlipidemia
Type 2 diabetes mellitus
Diabetic neuropathy
Hospital Course :
Patient is a 68-year-old male with mentioned past medical history came to ER with having new onset of abdominal pain/nausea and vomiting. Patient was having excessive weakness and some dizziness as well. In ER rapid evaluation patient was noted to
having new transaminitis and was hypotensive and bradycardic. Patient underwent left heart catheterization earlier in the week there was concern for cardiac complication. Cardiology was involved in care and evaluated patient. Patient
hypotension/bradycardia was felt to be related to increased Coreg dose. Patient had right upper quad ultrasound which ruled out any structural gallbladder or/liver issue. Patient elevated liver enzymes were felt to be related to increased
atorvastatin dose post heart catheterization. Both Coreg and Lipitor were held and patient was monitored overnight. Patient in improvement in vitals and LFTs were trending down. Patient was cleared by cardiology for discharge and planned
follow-up with cardiothoracic surgeon. Patient was provided a follow-up prescription for repeat liver enzymes checked within 1 week.
Important imaging findings :
None
Procedure findings :
None
Discharge Plan
-
Patient Disposition: Home (Routine Discharge)
Discharge Diagnosis/Procedures: Trans-aminitis/ elevated cpk from statin therapy
Condition: Fair
Diet: Low Fat, Low Cholesterol and Low Sodium
Activity: With assistance
Driving Restrictions: As prior to admission
Bathing Restrictions: OK to Shower
Blood Work: CMP in 1 week
Referrals:
Amita Gaines MD [Family Provider] - in one week
Rudolph Washington MD [Active] - 05/14/24 8:30 am (You have an appt to see the cardiothoracic surgeon, Dr. Washington, at the [place] office on 05/14/24 at 8:30 AM. Please call [phone] if you need to reschedule. )
Additional Discharge Medication Instructions: -STOP taking Coreg (carvedilol) and atorvastatin (Lipitor)
-Decrease dose of amlodipine to 5 mg (1/2 of a 10 mg tablet) once a day
Prescriptions:
Continued
multivitamin Tablet
1 tab PO DAILY Qty: 0
pantoprazole 40 MG tablet,delayed release (DR/EC)
40 mg PO DAILY
metformin 1,000 MG tablet
1,000 mg PO BID
magnesium 200 mg Tablet
200 mg PO DAILY Qty: 0
insulin aspart U-100 [Novolog FlexPen U-100 Insulin] 100 unit/mL (3 mL) Insulin Pen
6 unit SC MEALS Qty: 0
insulin degludec [Tresiba FlexTouch U-100] 100 unit/mL (3 mL) Insulin Pen
50 unit SC HS Qty: 0
Ozempic 0.25 mg or 0.5 mg(2 mg/1.5 mL) Pen Injector
0.5 mg SC PHILIP
sildenafil 50 mg Tablet
50 mg PO DAILY PRN (Reason: ed)
aspirin 81 mg Tablet,Delayed Release (Dr/Ec)
81 mg PO QPM
valsartan-hydrochlorothiazide 160-25 mg Tablet
1 tab PO DAILY
ginkgo biloba 120 mg Tablet
120 mg PO DAILY
nitroglycerin 0.4 mg tablet, sublingual
0.4 mg sublingual [id number] PRN (Reason: chest pain) Qty: 25 2RF
gabapentin 300 mg capsule
300 mg PO BID
Changed
amlodipine 10 MG tablet
5 mg PO DAILY Qty: 0 0RF
Discontinued
atorvastatin 80 mg tablet
80 mg PO HS Qty: 90 3RF
carvedilol [Coreg] 3.125 mg tablet
3.125 mg PO BID Qty: 180 3RF
Discharge Orders:
Discharge Patient (As Directed); Ordered 05/11/24
Ordered By: Kamron Chacon
Discharge Date and Time
Discharge Date/Time: 05/11/24 12:53
Print Language: FRENCH
== END 2024-05-11 12:53 | disposition home or self-care (01) | DRG 312 ==
LOC: 3 WEST ACU 17:20
PROVIDERS: Physician Assistant; Physician Assistant Medical; ADMITTING PHYSICIAN Hospitalist; CONSULT PHYSICIAN Internal Medicine Cardiovascular Disease; EMERGENCY PHYSICIAN Emergency Medicine; FAMILY PHYSICIAN Internal Medicine
DX: I95.2 Hypotension due to drugs (principal); M62.82 Rhabdomyolysis; R00.1 Bradycardia, unspecified; R74.01 Elevation of levels of liver transaminase levels; R11.2 Nausea with vomiting, unspecified; R07.89 Other chest pain; R79.89 Other specified abnormal findings of blood chemistry; T46.6X5A Adverse effect of antihyperlipidemic and antiarteriosclerotic drugs, initial encounter; I10 Essential (primary) hypertension; E11.40 Type 2 diabetes mellitus with diabetic neuropathy, unspecified; I25.10 Atherosclerotic heart disease of native coronary artery without angina pectoris; E78.5 Hyperlipidemia, unspecified; T44.7X5A Adverse effect of beta-adrenoreceptor antagonists, initial encounter; K21.9 Gastro-esophageal reflux disease without esophagitis; R51.9 Headache, unspecified; R41.82 Altered mental status, unspecified; I34.0 Nonrheumatic mitral (valve) insufficiency; N40.0 Benign prostatic hyperplasia without lower urinary tract symptoms; Z82.49 Family history of ischemic heart disease and other diseases of the circulatory system; Z87.891 Personal history of nicotine dependence; Z79.4 Long term (current) use of insulin; Z79.82 Long term (current) use of aspirin
CPT/HCPCS: 70450; 76700; 80053; 82550; 82962; 83036; 83690; 84484; 85025; 85027; 93005; 96361; 96374; 99285

== ENCOUNTER 2024-07-25 08:39 | Outpatient (RCR) | payer OTHER, SELFPAY ==
[2024-07-01 11:57] LABS: Glucose - Point of Care 135 mg/dl (70-99)
[2024-07-01 12:40] LABS: Glucose - Point of Care 113 mg/dl (70-99)
[2024-07-04 08:31] LABS: Glucose - Point of Care 198 mg/dl (70-99)
[2024-07-04 09:25] LABS: Glucose - Point of Care 148 mg/dl (70-99)
[2024-07-11 08:43] LABS: Glucose - Point of Care 110 mg/dl (70-99)
[2024-07-11 09:32] LABS: Glucose - Point of Care 119 mg/dl (70-99)
[2024-07-12 15:09] LABS: Glucose - Point of Care 130 mg/dl (70-99)
[2024-07-12 16:21] LABS: Glucose - Point of Care 105 mg/dl (70-99)
[2024-07-16 08:40] LABS: Glucose - Point of Care 131 mg/dl (70-99)
[2024-07-16 09:30] LABS: Glucose - Point of Care 116 mg/dl (70-99)
[2024-07-17 14:34] LABS: Glucose - Point of Care 185 mg/dl (70-99)
[2024-07-17 15:23] LABS: Glucose - Point of Care 150 mg/dl (70-99)
== END 2024-07-25 23:59 | disposition home or self-care (01) ==
LOC: CRHB 08:39
PROVIDERS: ATTENDING PHYSICIAN Internal Medicine Cardiovascular Disease
DX: I25.10 Atherosclerotic heart disease of native coronary artery without angina pectoris (principal); Z95.1 Presence of aortocoronary bypass graft
CPT/HCPCS: 82962; G0422; G0423

== ENCOUNTER 2024-08-22 09:39 | Outpatient (RCR) | payer OTHER, SELFPAY | END 2024-08-22 23:59 | disposition home or self-care (01) | LOC: CRHB 09:39 | PROVIDERS: ATTENDING PHYSICIAN Internal Medicine Cardiovascular Disease | DX: I25.10 Atherosclerotic heart disease of native coronary artery without angina pectoris (principal); Z95.1 Presence of aortocoronary bypass graft | CPT/HCPCS: G0422; G0423 ==

== ENCOUNTER 2024-09-26 09:44 | Outpatient (RCR) | payer OTHER, SELFPAY | END 2024-09-26 23:59 | disposition home or self-care (01) | LOC: CRHB 09:44 | PROVIDERS: ATTENDING PHYSICIAN Internal Medicine Cardiovascular Disease | DX: I25.10 Atherosclerotic heart disease of native coronary artery without angina pectoris (principal); Z95.1 Presence of aortocoronary bypass graft | CPT/HCPCS: G0422; G0423 ==

== ENCOUNTER 2024-10-17 09:06 | Outpatient (RCR) | payer OTHER, SELFPAY | END 2024-10-17 23:59 | disposition home or self-care (01) | LOC: CRHB 09:06 | PROVIDERS: ATTENDING PHYSICIAN Internal Medicine Cardiovascular Disease | DX: Z95.1 Presence of aortocoronary bypass graft (principal) | CPT/HCPCS: G0422; G0423 ==

== ENCOUNTER 2024-10-29 08:18 | Outpatient (RCR) | payer OTHER, SELFPAY | END 2024-10-29 23:59 | disposition home or self-care (01) | LOC: CRHB 08:18 | PROVIDERS: ATTENDING PHYSICIAN Internal Medicine Cardiovascular Disease; FAMILY PHYSICIAN Family Medicine | DX: Z95.1 Presence of aortocoronary bypass graft (principal) | CPT/HCPCS: G0422; G0423 ==